=== PATIENT | male | born 1990 | race Two or more races ===

== ENCOUNTER 2021-12-21 07:36 | Outpatient (CLI) | payer OTHER, SELFPAY ==
--- NOTE | 2022-01-05 23:32 | WPDHOMESLEEP ---
Sleep Study - Home Unattended Date of Study: 12/21/21 Ordering Provider: Jose Palmer APRN Interpreting Provider: Poppy Torres, DO Home Sleep Study Type: Apnea Link Air Height: 1.88 m Weight: 95.254 kg Body Mass Index: 26.9 Neck Circumference (inches): 17 [place]: 9 Reason for Sleep Study Snoring, daytime hypersomnia Sleep History The patient is a 31 year old male with no major medical issues that had a sleep study ordered by the pulmonary office for evaluation of sleep apnea. The patient denies awakening from sleep short of he rarely awakens at with heartburn, belching or cough. He constantly snores loud that others complain. He denies having trouble sleeping when he has a cold. He denies waking up gasping for air throughout the night. He rarely has breathing problems at night observed by himself or others. He denies sweating excessively at night. He denies having heart palpitations or irregular heartbeats during the night. He occasionally falls asleep during the day but never while driving. He denies sleep paralysis, cataplexy and hypnagogic / hypnopompic hallucinations. He denies having trouble at school or work duty sleepiness. He rarely has nightmares. He occasionally remembers his dreams. He denies having thoughts racing through his mind. He denies feeling sad, depressed or anxious. He denies having muscular tension. He rarely notices parts of his body jerk. He rarely kicks during the night. He denies having crawling and aching feelings in his legs as well as leg pain during the night. He denies grinding his teeth during sleep and awakening morning jaw pain. He denies being bothered by pain during the day and denies being awakened by pain during the. He denies waking up feeling stiff in morning. He denies waking up with sore achy muscles. He denies waking up with pain in the neck, spine and other joints. He goes to bed at 2:00 a.m. on both weekdays and weekends. He can fall asleep within 15 minute. He wakes up 1-2 times throughout the night to urinate. He is able to fall back asleep within a few minutes. He wakes up at 10:00 a.m. on both weekdays and weekends. He typically gets 8 hours of sleep per. Will stay in bed for 30 minutes after waking up the morning. He currently lives alone. He denies consuming any caffeinated beverages within 2 hours of bedtime. He does not engage in physical exercise before bedtime. He will watch television before falling asleep. He denies taking naps in the afternoon or the evening. He will drink caffeinated beverages throughout the day. He denies tobacco, alcohol and recreational drug use. [facility] Past Medical History Medical History No significant past medical history Surgical History Surgical History [place] teeth removed Social History Social History Social History: Retired [place]. 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 Smoking status: Never smoker Alcohol intake: never Substance use: never Medications Home Medications Medication Instructions Recorded Confirmed Type No Home Medications 10/26/19 10/28/21 History Sleep Procedure This test was performed using 4 channel monitoring including respiratory effort channel, snoring channel, heart rate channel, and oxygen saturation channel. This study was scored using CMS guidelines. Sleep Architecture The patient had a total recording time of 3 hours 19 min and a total monitoring time of 1 hour 11 minutes. The patient spent the entire study in the supine position. Respiratory Analysis The patient had an overall AHI of 112.7 and a central apnea index of 98.5. The patient had a supine AHI of 113. The patient had 132 apneas and 3 hypopneas. No Jae-Head respirations were seen. Oximetry Data [facility]
[2022-01-05 23:56] VITALS: BMI 26.9
== END 2021-12-22 13:47 | disposition home or self-care (01) ==
PROVIDERS: PCP Family Medicine; Visit Provider Nurse Practitioner Family
DX: G47.9 Sleep disorder, unspecified (principal); R06.83 Snoring; G47.30 Sleep apnea, unspecified
CPT/HCPCS: 95806

== ENCOUNTER 2023-07-23 19:18 | Emergency (ER) | payer OTHER, SELFPAY ==
[2023-07-23 19:28] VITALS: BP 140/92; PULSE 111; RESP 16; TEMP 36.7; O2SAT 99
[2023-07-23] MEDS: TETANUS,DIPHTHERIA,AC PERTUSSIS ADULT (0.5 ML) BOOSTRIX IM (19:45)
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
== END 2023-07-23 20:08 | disposition home or self-care (01) ==
PROVIDERS: Emergency Provider Nurse Practitioner Family; PCP Family Medicine
DX: S01.21XA Laceration without foreign body of nose, initial encounter (principal); Y00.XXXA Assault by blunt object, initial encounter; Y99.0 Civilian activity done for income or pay; Z23 Encounter for immunization
CPT/HCPCS: 90471; 90715; 99212; G0463